=== PATIENT | female | born 1980 | race Caucasian/White ===

== ENCOUNTER 2020-04-28 00:14 | Emergency (ER) | payer OTHER ==
[~2020-04-28] VITALS: Ht 172.7 cm; Wt 63.2 kg
[2020-04-28] MEDS ORDERED: ibuprofen tablet 400 MG TABLET PO ONE (00:40)
[2020-04-28] MEDS ORDERED: amoxicillin 250mg capsule PO ONE (00:40)
[2020-04-28] MEDS ORDERED: AMOX500C2 PO (00:40)
[2020-04-28] MEDS ORDERED: MELO-100 PO (00:40)
[2020-04-28] MEDS ORDERED: ondansetron 4mg rapidly disintigrating tab PO ONE (00:40)
[2020-04-28 00:59] VITALS: BP 113/79
== END 2020-04-28 01:02 | disposition home or self-care (01) ==
LOC: ER 00:15
DX: K08.89 Other specified disorders of teeth and supporting structures (principal); M79.604 Pain in right leg; K13.79 Other lesions of oral mucosa; Z72.89 Other problems related to lifestyle; Z79.2 Long term (current) use of antibiotics; Z79.899 Other long term (current) drug therapy
CPT/HCPCS: 99284

== ENCOUNTER 2020-05-10 02:11 | Emergency (ER) | payer SELFPAY ==
[~2020-05-10] VITALS: Ht 172.7 cm; Wt 66.0 kg
[~2020-05-10 02:11] MED LIST: AMOX500C2 PO; MELO-100 PO
--- NOTE | 2020-05-10 03:57 | NUR ---
verbal received from Dr. Barber for zofran and gail for ice chips.
[2020-05-10] MEDS ORDERED: ondansetron 4mg rapidly disintigrating tab PO ONE (04:00)
--- NOTE | 2020-05-10 04:01 | NUR ---
pt awkens easily. Reports nausea and had one small episode of emesis.VSS. States pain to the bottoms of her feet from walking. Verbal received from Dr. Barber for jose hale. reports we are watching her for awhile before she will be ready for dc. updated that she feels dizzy also.
--- NOTE | 2020-05-10 05:08 | NUR ---
PT WITH NO NAUSEA WHILE LAYING DOWN, ATE SOME CRACKERS AND DRANK 2 APPLE JUICES AND SOME WATER. STATES NAUSEA COMES BACK WHEN SHE SITS UP AND SO DOES THE DIZZINESS.
--- NOTE | 2020-05-10 05:17 | NUR ---
Dr. Barber updated on Pts vertigo and nausea upon sitting up. Verbal for piv, ivf, meclazine, cbc, cmp
[2020-05-10] MEDS ORDERED: normal saline 1000ML IV soln IVB ONE (05:20)
[2020-05-10] MEDS ORDERED: meclizine 12.5mg tablet PO ONE (05:20)
[2020-05-10] MEDS ORDERED: diphenhydrAMINE 50 mg/ml inj IV ONE (05:50)
[2020-05-10 05:53] LABS: BASOPHILS % (AUTO) 0.5 % (0-1); EOSINOPHILS # (AUTO) 0.2 X10'3 (0-0.9); EOSINOPHILS % (AUTO) 3.2 % (0-6); LYMPHOCYTES # (AUTO) 1.8 X10'3 (1.1-4.8); LYMPHOCYTES % (AUTO) 28.7 % (21-51); MEAN CORPUSCULAR HEMOGLOBIN 31.3 PG (27.0-31.0); MEAN CORPUSCULAR HGB CONC 34.1 g/dL (33.0-36.5); MEAN CORPUSCULAR VOLUME 91.8 FL (78-98); MEAN PLATELET VOLUME 8.9 FL (7.4-10.4); MONOCYTES # (AUTO) 0.4 X10'3 (0-0.9); MONOCYTES % (AUTO) 6.4 % (2-12); NEUTROPHILS # (AUTO) 3.9 X10'3 (1.8-7.7); NEUTROPHILS % (AUTO) 61.2 % (42-75); PLATELET COUNT 207 X10'3 (140-440); RED BLOOD COUNT 4.47 X10'6 (4.20-5.60); WHITE BLOOD COUNT 6.3 X10'3 (4.5-11.0)
[2020-05-10] MEDS ORDERED: MECL-159 PO (05:57)
--- NOTE | 2020-05-10 05:57 | NUR ---
CT OF HEAD ORDERED. AWAITING SERUM HCG RESULT PT REPORTS SHE COULD BE . SHE STATES SHE IS HOMELESS AND [place]. SHE HAS NOONE WHO CAN PICK HER UP AT TIME OF DC.
[2020-05-10 06:14] LABS: ALANINE AMINOTRANSFERASE 42 U/L (12-78); ALBUMIN 3.8 G/DL (3.4-5.0); ALKALINE PHOSPHATASE 47 IU/L (46-116); ANION GAP 6 (8-16); ASPARTATE AMINO TRANSFERASE 26 U/L (10-37); BILIRUBIN,TOTAL 0.7 MG/DL (0.1-1.0); BLOOD UREA NITROGEN 8 MG/DL (7-18); BUN/CREATININE RATIO 8.2 (6.6-38.0); CALCIUM 8.5 MG/DL (8.5-10.1); CHLORIDE 105 MMOL/L (99-107); CREATININE 0.98 MG/DL (0.40-0.90); GLUCOSE 127 MG/DL (70-104); POTASSIUM 3.4 MMOL/L (3.5-5.1); SODIUM 142 MMOL/L (135-145); TOTAL CARBON DIOXIDE 31.3 MMOL/L (24-32); TOTAL PROTEIN 7.5 G/DL (6.4-8.2); eGFR 64 ML/MIN
[2020-05-10 06:17] LABS: HCG SERUM QL NEGATIVE
[2020-05-10 06:40] VITALS: BP 118/96
== END 2020-05-10 08:32 | disposition home or self-care (01) ==
LOC: ER 02:12
DX: T40.1X1A Poisoning by heroin, accidental (unintentional), initial encounter (principal); R42 Dizziness and giddiness; F17.200 Nicotine dependence, unspecified, uncomplicated; F12.90 Cannabis use, unspecified, uncomplicated; F15.90 Other stimulant use, unspecified, uncomplicated; Z72.89 Other problems related to lifestyle; Z88.2 Allergy status to sulfonamides; Z88.5 Allergy status to narcotic agent; Z88.6 Allergy status to analgesic agent; Z79.899 Other long term (current) drug therapy; Y92.89 Other specified places as the place of occurrence of the external cause
CPT/HCPCS: 36415; 70450; 71045; 80053; 84703; 85025; 96374; 99285; J1200; J7030; J8597